=== PATIENT | female | born 1955 | race Caucasian/White ===

== ENCOUNTER → 2017-01-06 | Outpatient (CLI) | payer BC, OTHER | LOC: HYPER 12-28 11:40 | DX: L97.421 Non-pressure chronic ulcer of left heel and midfoot limited to breakdown of skin (principal); L03.116 Cellulitis of left lower limb; I73.9 Peripheral vascular disease, unspecified; M79.672 Pain in left foot; Z85.42 Personal history of malignant neoplasm of other parts of uterus ==

== ENCOUNTER → 2017-02-09 | Outpatient (CLI) | payer BC, OTHER | LOC: HYPER | DX: I70.244 Atherosclerosis of native arteries of left leg with ulceration of heel and midfoot (principal); L97.422 Non-pressure chronic ulcer of left heel and midfoot with fat layer exposed; I73.9 Peripheral vascular disease, unspecified; Z85.42 Personal history of malignant neoplasm of other parts of uterus; Z85.828 Personal history of other malignant neoplasm of skin; M79.672 Pain in left foot ==

== ENCOUNTER → 2017-03-01 | Outpatient (CLI) | payer BC, OTHER ==
[~2017-03-01] MED LIST: ATENOLOL 50MG T50 M1 PO; ATORVASTATIN CA20 MG PO; BRIMONIDINE TAR1 BO1 OP; EFFEXOR XR150 MG PO; EFFIENT10 MG PO; MULTIVITAMINS PO; TIMOLOL MA0.5 %/5 M2 OPHTHALMIC; VITAMIN C500 M1 PO; YOSPRALA DR 811 EACH PO
== END ==
LOC: HYPER 06:57
DX: I70.244 Atherosclerosis of native arteries of left leg with ulceration of heel and midfoot (principal); L97.422 Non-pressure chronic ulcer of left heel and midfoot with fat layer exposed; M79.672 Pain in left foot; Z85.42 Personal history of malignant neoplasm of other parts of uterus; Z90.710 Acquired absence of both cervix and uterus; Z79.4 Long term (current) use of insulin

== ENCOUNTER 2017-03-03 05:21 | Inpatient (IN) | payer BC, OTHER ==
[2017-02-24 11:57] LABS: URINE BILIRUBIN NEGATIVE (Negative); URINE BLOOD NEGATIVE (Negative); URINE COLOR YELLOW; URINE GLUCOSE-RANDOM* 3+ (Negative); URINE KETONES NEGATIVE (Negative); URINE LEUKOCYTES-REFLEX NEGATIVE (Negative); URINE PROTEIN (DIPSTICK) NEGATIVE (Negative); URINE UROBILINOGEN 0.2 E.U./dl (0.2-1.0)
[2017-02-24 12:02] LABS: HEMOGLOBIN 13.8 gm/dL (12.0-15.0); MCH 30.6 pg (26.0-34.0); MCHC 33.7 g/dL (28.0-37.0); MCV 90.7 fL (80.0-100.0); RBC 4.52 mil/uL (4.20-5.00); RDW 12.8 % (10.5-14.5); WBC 8.5 thou/uL (4.0-11.0)
[2017-02-24 12:15] LABS: APTT 24.2 Seconds (24.5-32.8)
[2017-02-24 12:21] LABS: CALCIUM 9.4 mg/dL (8.5-10.1); CREATININE 0.9 mg/dL (0.6-1.0); POTASSIUM 4.2 mmol/L (3.5-5.1)
[2017-03-03] VITALS (19 sets, daily range): BP systolic 101–191; BP diastolic 54–84
[~2017-03-03] VITALS: Ht 157.5 cm; Wt 86.7 kg
--- NOTE | ~2017-03-03 | EKG ---
[address] [place] [address] ELECTROCARDIOGRAM REPORT Name: KATEY DANIEL Room #: 239-P ADM IN M.R.#: [id number] Admission: 03/03/17 Attend Phys: Sivakumar Mejia MD Discharge: Date of : 51 Report #: [id number] THIS REPORT FOR: //name// [facility] Test Date: 2017-03-04 Test Time: 06:44:58 Pat Name: KATEY DANIEL Department: Room: 239 P Gender: F Transmission Repairer: nyla : 1955 Requested By: Don Piña Order Number: [id number] MD: Paco Negron Measurements Intervals [place] Rate: 62 P: 1 MD: 138 QRS: -19 QRSD: 91 T: -1 QT: 477 QTc: 485 Interpretive Statements Sinus rhythm Abnormal R-wave progression, early transition Nonspecific ST and T-wave abnormality Compared to ECG 02/24/2017 11:44:54 no significant change was found Electronically Signed On 03-04-2017 8:17:13 CDT by Paco Negron [email or web address] <ELECTRONICALLY SIGNED> By: Paco Negron MD, [facility] 03/04/17 0817 0644 [id number] Paco Negron MD, [facility] /EPI
--- NOTE | ~2017-03-03 | EKG ---
[address] [place] [address] ELECTROCARDIOGRAM REPORT Name: KATEY DANIEL Room #: 239-P ADM IN M.R.#: [id number] Admission: 03/03/17 Attend Phys: Sivakumar Mejia MD Discharge: Date of : 51 Report #: [id number] THIS REPORT FOR: //name// [facility] Test Date: 2017-03-03 Test Time: 16:54:10 Pat Name: KATEY DANIEL Department: Room: 239 Gender: F Store Grocery Merchandiser: Francis MOYER : 1955 Requested By: Don Piña Order Number: [id number] MD: Paco Negron Measurements Intervals [place] Rate: 66 P: 38 [place]: 135 QRS: 1 QRSD: 75 T: 50 QT: 419 QTc: 439 Interpretive Statements Sinus rhythm Abnormal R-wave progression, early transition Borderline T wave abnormalities Compared to ECG 02/24/2017 11:44:54 T-wave abnormality less prominent Electronically Signed On 03-04-2017 8:11:48 CDT by Paco Negron [email or web address] <ELECTRONICALLY SIGNED> By: Paco Negron MD, [facility] 03/04/17 0811 1654 1654 Paco Negron MD, [facility] /EPI
--- NOTE | ~2017-03-03 | EKG ---
[address] [place] [address] ELECTROCARDIOGRAM REPORT Name: JACSOPHIEKATEY Room #: PRE IN ..#: [id number] Admission: Attend Phys: Sivakumar Mejia MD Discharge: Date of : 51 Report #: [id number] THIS REPORT FOR: //name// [facility] Test Date: 2017-02-24 Test Time: 11:44:54 Pat Name: KATEY DANIEL Department: Room: Gender: F Lead Electrical Controls Engineer: luci romero : 1955 Requested By: Sivakumar Mejia Order Number: [id number] : Cristian Mclaughlin Measurements Intervals [place] Rate: 66 P: 31 [place]: 133 QRS: 60 QRSD: 87 T: -66 QT: 412 QTc: 432 Interpretive Statements Sinus rhythm Repol abnrm suggests ischemia, inferior leads No previous ECG available for comparison Electronically Signed On 02-28-2017 8:17:11 CDT by Cristian Mclaughlin [email or web address] <ELECTRONICALLY SIGNED> By: Cristian Mclaughlin MD 02/28/17 0817 1144 1144 MD MARILU Alarcon
--- NOTE | ~2017-03-03 | CRIT ---
[facility] [place] [address] CRITICAL CARE NOTE Name: KATEY DANIEL Room #: 208-P ADM IN M.R.#: [id number] Admission: 03/03/17 Attend Phys: Sivakumar Mejia MD Discharge: Date of : 51 Report #: [id number] THIS REPORT FOR: //name// CC: Sivakumar Nieto DATE OF SERVICE: 03/05/2017 WOUND CARE CONSULTATION NOTE REASON FOR CONSULTATION: Nonhealing ulcer of left lateral ankle in the setting of peripheral vascular disease with stents and diabetes. HISTORY: The patient is a 61-year-old woman, very well known to Dr. Minesh Knight who has been seeing her on an outpatient basis and healing and wound care. She is at [facility] 48 hours status post coronary artery bypass grafting with a right greater saphenous vein graft on . She is still in the ICU. She is doing well from her coronary artery bypass. Sometime in October, the patient was picking at a scab on her left foot near the ankle and a wound developed. She has been seeing Dr. Knight for this wound with silver alginate dressings. She has been found to have peripheral vascular disease of her lower extremities and part of that workup led to discovery of her coronary artery disease, which is now surgically treated. Dr. Flores has performed interventional procedures on the patient. Aortogram with runoff was done by Dr. Flores who placed right and left external iliac stents with a high-grade 95% mid left common femoral artery stenosis found. Both the right and the left leg have received stents. Dr. Knight has been trying to get the wound of the left ankle to heal. The patient states that she has to have another stent done on the vessels of her left leg by Dr. Flores. ALLERGIES: ASPIRIN and OXYCODONE. HOME MEDICATIONS: Include atenolol, venlafaxine, atorvastatin, Prasugrel, aspirin, Timolol, brimonidine, multivitamins and vitamin C as well as melatonin and amiodarone. PAST SURGICAL HISTORY: Coronary artery bypass grafting with right greater saphenous vein graft 48 hours ago. History of stenting of both lower extremities. REVIEW OF SYSTEMS: Noncontributory. PHYSICAL EXAMINATION: GENERAL: Shows a well-appearing 61-year-old female recovering from surgery. Mucous membranes are moist. CHEST: Shows a healing median sternotomy scar with complete skin closure and no [address] [address] CRITICAL CARE NOTE Name: KATEY DANIEL Room #: 208-P [facility] IN .R.#: [id number] Admission: 03/03/17 Attend Phys: Sivakumar Mejia MD Discharge: Date of : 51 Report #: [id number] redness or drainage. ABDOMEN: Obese and soft. EXTREMITIES: Examination of the lower extremities shows a small surgical incision in the right upper leg at the groin, which is well healing. Vein harvest incision near the knee and of the lower leg on the right are also well healing. Examination of the left lower extremity shows a chronic appearing small 1 x 0.4 x 0.2 cm deep ulcer near the left ankle laterally. There is some chronic thickening of the skin around the ulcer and pink granulation tissue at the base. Minimal erythema. Wound appears chronic. ASSESSMENT: 1. Coronary artery disease status post coronary artery bypass grafting. 2. Obesity. 3. Diabetes mellitus type 2. 4. Diabetic ulcer of the left foot in the setting of peripheral vascular disease of both right and left leg, status post stenting. The patient is to have further stenting on the left leg. PLAN: We will continue some dressings with silver alginate dressings to the small open diabetic foot ulcer changed daily with a foam border and Kerlix gauze wrap. The patient can follow up after discharge with Dr. Knight in the office. She is to have further stenting in the left leg by Dr. Flores. <ELECTRONICALLY SIGNED> By: Kushal Curtis MD 03/08/17 0820 1403 1858 Kushal Curtis MD /nt
--- NOTE | ~2017-03-03 | EKG ---
[address] [place] [place] [address] ELECTROCARDIOGRAM REPORT Name: KATEY DANIEL Room #: 208-P ADM IN M.R.#: [id number] Admission: 03/03/17 Attend Phys: Sivakumar Mejia MD Discharge: Date of : 51 Report #: [id number] THIS REPORT FOR: //name// [facility] Test Date: 2017-03-07 Test Time: 06:40:19 Pat Name: KATEY DANIEL Department: Room: 208 P Gender: F Dry Goods Clerk: nyla : 1955 Requested By: Don Piña Order Number: [id number] MD: Paco Negron Measurements Intervals [place] Rate: 62 P: 21 [place]: 130 QRS: 2 QRSD: 88 T: 195 QT: 450 QTc: 457 Interpretive Statements Sinus rhythm Abnormal T, consider ischemia, diffuse leads Compared to ECG 03/04/2017 06:44:58 ST and T wave abnormality is more pronounced. Electronically Signed On 03-07-2017 7:15:33 CDT by Paco Negron [email or web address] <ELECTRONICALLY SIGNED> By: Paco Negron MD, [facility] 03/07/17714 9 9 Paco Negron MD, [facility] /EPI
--- NOTE | ~2017-03-03 | O ---
[facility] [place] [address] OPERATIVE REPORT Name: KATEY DANIEL Room #: 239-P ADM IN M.R.#: [id number] Admission: 03/03/17 Attend Phys: Sivakumar Mejia MD Discharge: Date of : 51 Report #: [id number] THIS REPORT FOR: //name// CC: Sivakumar Gavin timothy DATE OF SERVICE: 03/03/2017 PREOPERATIVE DIAGNOSIS: Coronary artery disease. POSTOPERATIVE DIAGNOSIS: Coronary artery disease. OPERATION: Coronary artery bypass x 4 including left internal mammary artery to left anterior descending artery, saphenous vein to diagonal, saphenous vein to posterior descending branch of the right coronary and posterolateral branch of the circumflex and endoscopic harvest right greater saphenous vein. SURGEON: Sivakumar Mejia M.D. HEALTHCARE RISK CONTROL CONSULTANT: Wang. ANESTHESIA: General. INDICATIONS: The patient is a 61-year-old seen for Dr. Montoya. The patient has a known peripheral arterial occlusive disease and was found to have important coronary artery disease. Catheterization demonstrated a long narrow LAD that was flanking a diagonal. In addition, there was a codominant circumflex with a distal 50% lesion threatening the posterolateral branch. There was a first marginal that had proximal disease, but this was a small vessel. Right coronary had a 50% mid portion stenosis. Left ventricular function is satisfactory. FINDINGS AND TECHNIQUE: After general anesthesia was established, saphenous vein was harvested using an endoscopic approach and prepared for use as a conduit. Exposure was obtained through median sternotomy. Left internal mammary artery was harvested. Pericardial well was made. Cannulation sutures were placed. Heparin was given. Aorta was cannulated. Right atrium was cannulated. Cardioplegia needle was positioned in the aortic root. Retrograde cardioplegic catheter was placed in coronary sinus. Cardiopulmonary bypass was established. The aorta was cross clamped antegrade then retrograde cardioplegia were given. Ice was poured in the pericardial well. The heart was stopped. During electromechanical arrest, the distal anastomoses were performed and end-to-side anastomosis was made between vein and the posterolateral branch of the circumflex. Cold cardioplegia was given. Same segment of vein was sewn in [id number] fashion to posterior descending artery. Cold cardioplegia was [facility] [address] [place] [address] OPERATIVE REPORT Name: KATEY DANIEL Room #: 239-P [facility] IN .R.#: [id number] Admission: 03/03/17 Attend Phys: Sivakumar Mejia MD Discharge: Date of : 51 Report #: [id number] given. Separate segment of vein was sewn in end-to-side fashion to the diagonal artery. I looked at the marginal and dissected it off, but I thought it was too small for bypass. Cold cardioplegia was given. Left internal mammary artery was sewn in end-to-side fashion to the left anterior descending artery. When the anastomosis was completed, it was checked with the temperature technique. Cold cardioplegia was given. Two proximal anastomoses were performed. When these were complete, warm retrograde cardioplegia was given followed by warm continuous blood to the coronary sinus. When this infusion was complete, the crossclamp was removed. De-airing maneuvers were performed. The anastomoses were inspected and found to be satisfactory. As the patient warmed, nice cardiac activity resumed, chest tubes and pacing wires were placed, a marker was placed around the proximal anastomoses. When the patient was warmed, she was weaned from cardiopulmonary bypass. Venous cannula was removed. Protamine was given, the aortic cannula was removed. Flows were measured in the bypass grafts. Flow in the graft to the right side was 50 mL per minute. Flow in the graft to the left side was low, but we listen to the graft with the Doppler and felt there was good diastolic flow of the vessel. The diagonal itself was small. A good Doppler signal was audible in the internal mammary artery. Total cross clamp time was 90 minutes. Total pump time was 111 minutes. When hemostasis was satisfactory, chest was irrigated with antibiotic solution and closed in the usual fashion. The patient was taken to the Intensive Care Unit in good condition having tolerated the procedure well. By: 03 58 Sivakumar Mejia MD /saul
[2017-03-03 13:47] LABS: POC BE 0 mmol/L (-2.0 to +3.0); POC CA IONIZED 4.5 mg/dL (4.5-5.3); POC FiO2 100 %; POC GLUCOSE 204 mg/dL (70-99); POC HCO3 25.1 mmol/L (22.0-26.0); POC HEMOGLOBIN 7.5 g/dL (12.0-15.0); POC POTASSIUM 3.5 mmol/L (3.5-5.1); POC SODIUM 134 mmol/L (136-145); POC pCO2 43.2 mmHg (35.0-45.0); POC pH 7.373 (7.360-7.450)
[2017-03-03 13:47] LABS: POC BE -5 mmol/L (-2.0 to +3.0); POC CA IONIZED 5.2 mg/dL (4.5-5.3); POC FiO2 100 %; POC GLUCOSE 153 mg/dL (70-99); POC HEMOGLOBIN 8.8 g/dL (12.0-15.0); POC POTASSIUM 3.3 mmol/L (3.5-5.1); POC SODIUM 139 mmol/L (136-145); POC pCO2 35.3 mmHg (35.0-45.0); POC pH 7.362 (7.360-7.450)
[2017-03-03 13:47] LABS: POC BE -2 mmol/L (-2.0 to +3.0); POC FiO2 100 %; POC GLUCOSE 199 mg/dL (70-99); POC HCO3 21.9 mmol/L (22.0-26.0); POC HEMOGLOBIN 10.5 g/dL (12.0-15.0); POC POTASSIUM 3.9 mmol/L (3.5-5.1); POC SODIUM 135 mmol/L (136-145); POC pCO2 33.2 mmHg (35.0-45.0); POC pH 7.427 (7.360-7.450)
[2017-03-03 13:47] LABS: POC BE -4 mmol/L (-2.0 to +3.0); POC CA IONIZED 4.6 mg/dL (4.5-5.3); POC FiO2 100 %; POC GLUCOSE 200 mg/dL (70-99); POC HCO3 21.8 mmol/L (22.0-26.0); POC HEMOGLOBIN 8.5 g/dL (12.0-15.0); POC POTASSIUM 3.5 mmol/L (3.5-5.1); POC SODIUM 135 mmol/L (136-145); POC pCO2 42.4 mmHg (35.0-45.0); POC pH 7.319 (7.360-7.450)
[2017-03-03 13:47] LABS: POC BE -2 mmol/L (-2.0 to +3.0); POC CA IONIZED 4.6 mg/dL (4.5-5.3); POC FiO2 80 %; POC GLUCOSE 192 mg/dL (70-99); POC HCO3 23.9 mmol/L (22.0-26.0); POC HEMOGLOBIN 7.1 g/dL (12.0-15.0); POC POTASSIUM 3.9 mmol/L (3.5-5.1); POC SODIUM 134 mmol/L (136-145); POC pCO2 42.6 mmHg (35.0-45.0); POC pH 7.356 (7.360-7.450)
[2017-03-03 13:47] LABS: POC BE 1 mmol/L (-2.0 to +3.0); POC FiO2 100 %; POC GLUCOSE 134 mg/dL (70-99); POC HCO3 23.9 mmol/L (22.0-26.0); POC HEMOGLOBIN 11.2 g/dL (12.0-15.0); POC POTASSIUM 3.7 mmol/L (3.5-5.1); POC SODIUM 136 mmol/L (136-145); POC pCO2 29.9 mmHg (35.0-45.0)
[2017-03-03 13:47] LABS: POC BE -3 mmol/L (-2.0 to +3.0); POC CA IONIZED 5.5 mg/dL (4.5-5.3); POC FiO2 100 %; POC GLUCOSE 170 mg/dL (70-99); POC HCO3 21.6 mmol/L (22.0-26.0); POC HEMOGLOBIN 6.8 g/dL (12.0-15.0); POC POTASSIUM 3.8 mmol/L (3.5-5.1); POC SODIUM 136 mmol/L (136-145); POC pCO2 34.8 mmHg (35.0-45.0); POC pH 7.401 (7.360-7.450)
[2017-03-03 13:47] LABS: POC BE -1 mmol/L (-2.0 to +3.0); POC CA IONIZED 4.7 mg/dL (4.5-5.3); POC FiO2 90 %; POC GLUCOSE 180 mg/dL (70-99); POC HCO3 24.8 mmol/L (22.0-26.0); POC HEMOGLOBIN 7.1 g/dL (12.0-15.0); POC POTASSIUM 4.4 mmol/L (3.5-5.1); POC SODIUM 134 mmol/L (136-145); POC pCO2 45.4 mmHg (35.0-45.0); POC pH 7.346 (7.360-7.450)
[2017-03-03 14:22] LABS: HEMATOCRIT 26.7 % (37.0-47.0); HEMOGLOBIN 9.3 gm/dL (12.0-15.0); MCH 31.8 pg (26.0-34.0); MCHC 34.8 g/dL (28.0-37.0); MCV 91.3 fL (80.0-100.0); RBC 2.93 mil/uL (4.20-5.00); RDW 12.4 % (10.5-14.5); WBC 9.2 thou/uL (4.0-11.0)
[2017-03-03 14:29] LABS: CALCIUM 8.5 mg/dL (8.5-10.1); CREATININE 0.6 mg/dL (0.6-1.0); POTASSIUM 3.5 mmol/L (3.5-5.1)
[2017-03-03 14:35] LABS: ABG SAMPLE TYPE ARTERIAL; BE(vivo) -5.4 mmol/L (-2 to +3); HCO3 19.7 mmol/L (22.0-26.0); LACTATE 1.97 mmol/L (0.5-2.0); O2(CT) 14.1 mL/dL (15.0-23.0); O2Hb 97.8 % (92.0-98.0); PO2 218.5 mmHg (80.0-100.0); STICK SITE LINE; TIDAL VOLUME 550 ml; pH 7.345 (7.360-7.450); sO2 99.4 % (92.0-98.0); tCO2 20.9 mmol/L (24.0-30.0)
[2017-03-03 14:37] LABS: ABG SAMPLE TYPE VENOUS; BE(vivo) -5.6 mmol/L (-2 to +3); HCO3 20.6 mmol/L (22.0-26.0); LACTATE 1.88 mmol/L (0.5-2.0); O2(CT) 9.1 mL/dL (15.0-23.0); O2Hb VENOUS 63.9 (65.0-85.0); PCO2 VENOUS 43.2 mmHg (41.0-51.0); PO2 VENOUS 36.6 mmHg (35.0-45.0); sO2 VENOUS 63.8 % (65.0-85.0); tCO2 21.9 mmol/L (24.0-30.0)
[2017-03-03 14:38] LABS: STICK SITE LINE; TIDAL VOLUME 550 ml
[2017-03-03 18:21] LABS: HEMATOCRIT 31.7 % (37.0-47.0); HEMOGLOBIN 10.8 gm/dL (12.0-15.0); MCH 31.2 pg (26.0-34.0); MCHC 34.2 g/dL (28.0-37.0); MCV 91.1 fL (80.0-100.0); RBC 3.48 mil/uL (4.20-5.00); RDW 12.7 % (10.5-14.5); WBC 13.1 thou/uL (4.0-11.0)
[2017-03-03 18:30] LABS: CALCIUM 8.9 mg/dL (8.5-10.1); CREATININE 0.6 mg/dL (0.6-1.0); POTASSIUM 4.4 mmol/L (3.5-5.1)
[2017-03-03 19:12] LABS: ABG SAMPLE TYPE ARTERIAL; BE(vivo) -4.9 mmol/L (-2 to +3); HCO3 20.5 mmol/L (22.0-26.0); LACTATE 1.07 mmol/L (0.5-2.0); O2(CT) 15.2 mL/dL (15.0-23.0); O2Hb 93.3 % (92.0-98.0); PCO2 39.1 mmHg (35.0-45.0); pH 7.337 (7.360-7.450); sO2 94.7 % (92.0-98.0); tCO2 21.7 mmol/L (24.0-30.0)
[2017-03-03 19:13] LABS: ABG COMMENT CPAP TRIAL; Pressure Support 8 cm H20; STICK SITE LINE
[2017-03-03 20:00] LABS: ABG SAMPLE TYPE ARTERIAL; BE(vivo) -5.4 mmol/L (-2 to +3); Face Shield 40 %; HCO3 19.4 mmol/L (22.0-26.0); LACTATE 1.25 mmol/L (0.5-2.0); O2(CT) 15.6 mL/dL (15.0-23.0); O2Hb 95.6 % (92.0-98.0); PCO2 35.4 mmHg (35.0-45.0); PO2 90.2 mmHg (80.0-100.0); STICK SITE LINE; pH 7.356 (7.360-7.450); sO2 96.6 % (92.0-98.0); tCO2 20.5 mmol/L (24.0-30.0)
[2017-03-03 20:01] LABS: ABG COMMENT POST-EXTUBATION
[2017-03-04] VITALS (16 sets, daily range): BP systolic 106–147; BP diastolic 54–70
[2017-03-04 04:30] LABS: HEMATOCRIT 31.4 % (37.0-47.0); HEMOGLOBIN 10.5 gm/dL (12.0-15.0); MCH 30.9 pg (26.0-34.0); MCHC 33.6 g/dL (28.0-37.0); RBC 3.41 mil/uL (4.20-5.00); WBC 13.2 thou/uL (4.0-11.0)
[2017-03-04 04:52] LABS: CALCIUM 8.7 mg/dL (8.5-10.1); CREATININE 0.7 mg/dL (0.6-1.0); POTASSIUM 3.8 mmol/L (3.5-5.1)
[2017-03-05] VITALS (22 sets, daily range): BP systolic 117–144; BP diastolic 53–76
[2017-03-05 07:48] LABS: HEMATOCRIT 29.9 % (37.0-47.0); MCH 31.5 pg (26.0-34.0); MCHC 33.5 g/dL (28.0-37.0); MCV 93.9 fL (80.0-100.0); RBC 3.18 mil/uL (4.20-5.00); RDW 13.3 % (10.5-14.5); WBC 5.2 thou/uL (4.0-11.0)
[2017-03-05 07:58] LABS: CREATININE 0.6 mg/dL (0.6-1.0); POTASSIUM 4.4 mmol/L (3.5-5.1)
[2017-03-05 23:09] LABS: GLYCOHEMOGLOBIN (HGB A1C) 11.2 % (4.8-5.6)
[2017-03-06 01:13] VITALS: BP 1369/69; BP 139/69
[2017-03-06 02:56] LABS: HEMATOCRIT 27.2 % (37.0-47.0); HEMOGLOBIN 9.1 gm/dL (12.0-15.0); MCH 31.3 pg (26.0-34.0); MCHC 33.5 g/dL (28.0-37.0); MCV 93.3 fL (80.0-100.0); PLATELET COUNT 131 thou/uL (150-400); RBC 2.92 mil/uL (4.20-5.00); RDW 13.2 % (10.5-14.5); WBC 5.7 thou/uL (4.0-11.0)
[2017-03-06 02:59] LABS: MANUAL DIFF YES
[2017-03-06 03:02] LABS: CALCIUM 8.9 mg/dL (8.5-10.1); CREATININE 0.8 mg/dL (0.6-1.0); POTASSIUM 4.5 mmol/L (3.5-5.1)
[2017-03-06 03:30] LABS: ABSOLUTE NEUTROPHILS 3.8 thou/uL (1.4-8.2); TOTAL CELL COUNT 100
[2017-03-06 05:02] VITALS: BP 153/71
[2017-03-06 08:16] VITALS: BP 120/57
[2017-03-06 12:20] VITALS: BP 122/50
[2017-03-06 16:00] VITALS: BP 135/57
[2017-03-06 19:55] VITALS: BP 145/60
[2017-03-07 00:09] VITALS: BP 108/63; BP 108/663
[2017-03-07 02:56] LABS: HEMATOCRIT 27.8 % (37.0-47.0); HEMOGLOBIN 9.4 gm/dL (12.0-15.0); MCH 31.4 pg (26.0-34.0); MCHC 33.9 g/dL (28.0-37.0); MCV 92.8 fL (80.0-100.0); RDW 13.1 % (10.5-14.5); WBC 7.2 thou/uL (4.0-11.0)
[2017-03-07 03:06] LABS: CALCIUM 8.9 mg/dL (8.5-10.1); CREATININE 0.7 mg/dL (0.6-1.0)
[2017-03-07 04:00] VITALS: BP 128/94
[2017-03-07] MEDS ORDERED: LANTUSSOLASTAR SUBQ (08:54)
[2017-03-07] MEDS ORDERED: HUMALOG100 UNIT/1 SUBQ (08:54)
[2017-03-07 12:53] VITALS: BP 150/73
[2017-03-07 16:41] VITALS: BP 123/63
[2017-03-07 19:57] VITALS: BP 147/71
[2017-03-07 23:38] VITALS: BP 116/61
[2017-03-08 04:28] VITALS: BP 150/69
[2017-03-08] MEDS ORDERED: PACERONE 200 M200 M1 PO (07:52)
[2017-03-08] MEDS ORDERED: MONOPRIL20 MG PO (07:52)
[2017-03-08 08:10] VITALS: BP 147/73
[2017-03-08] MEDS ORDERED: HUMALOG100 UNIT/1 SUBQ (08:51)
[2017-03-08] MEDS ORDERED: LANTUSSOLASTAR SUBQ (08:51)
[2017-03-08 10:03] VITALS: BP 150/69
[2017-03-08 10:24] VITALS: BP 150/69
== END 2017-03-08 14:00 | disposition home health service (06) | DRG 236 ==
LOC: ICU 05:21 → TBA 05:21 → PRE 06:08 → ICU 14:44 → 2N 03-05 15:02
PROVIDERS: Internal Medicine Endocrinology, Diabetes & Metabolism; Physician Assistant; Surgery Vascular Surgery
PROC: 06BP0ZZ Excision of Right Saphenous Vein, Open Approach (ICD-10-PCS; principal; 2017-03-03)
PROC: 02HQ32Z Insertion of Monitoring Device into Right Pulmonary Artery, Percutaneous Approach (ICD-10-PCS; principal; 2017-03-03)
PROC: 02100Z9 Bypass Coronary Artery, One Artery from Left Internal Mammary, Open Approach (ICD-10-PCS; principal; 2017-03-03)
PROC: 021209W Bypass Coronary Artery, Three Arteries from Aorta with Autologous Venous Tissue, Open Approach (ICD-10-PCS; principal; 2017-03-03)
PROC: 5A1221Z Performance of Cardiac Output, Continuous (ICD-10-PCS; principal; 2017-03-03)
DX: I25.119 Atherosclerotic heart disease of native coronary artery with unspecified angina pectoris (principal); E87.1 Hypo-osmolality and hyponatremia; L97.429 Non-pressure chronic ulcer of left heel and midfoot with unspecified severity; D62 Acute posthemorrhagic anemia; D72.829 Elevated white blood cell count, unspecified; E78.5 Hyperlipidemia, unspecified; I10 Essential (primary) hypertension; F41.9 Anxiety disorder, unspecified; F32.9 Major depressive disorder, single episode, unspecified; E11.621 Type 2 diabetes mellitus with foot ulcer; E11.51 Type 2 diabetes mellitus with diabetic peripheral angiopathy without gangrene; I77.9 Disorder of arteries and arterioles, unspecified; E11.65 Type 2 diabetes mellitus with hyperglycemia; S91.302A Unspecified open wound, left foot, initial encounter; X58.XXXA Exposure to other specified factors, initial encounter; E78.00 Pure hypercholesterolemia, unspecified; R56.9 Unspecified convulsions; E66.9 Obesity, unspecified; Z68.35 Body mass index [BMI] 35.0-35.9, adult; Z95.828 Presence of other vascular implants and grafts; Y99.8 Other external cause status; Z88.6 Allergy status to analgesic agent; Z91.018 Allergy to other foods; Z79.899 Other long term (current) drug therapy; Z85.42 Personal history of malignant neoplasm of other parts of uterus
CPT/HCPCS: 10078; 10081; 47000; 47001; 47002; 47297; 48888; 50010; 50249; 50409; 50456; 50498; 50668; 51301; 52131; 52259; 53327; 53358; 54118; 56524; 56525; 56526; 56527; 56528; 56531; 56534; 56660; 56898; 57093; 62110; 62950; 64029; 65002; 65003; 65020; 65043; 65090; 65120

== ENCOUNTER 2017-05-11 05:46 | Inpatient (IN) | payer BC, OTHER ==
[2017-05-06 10:48] LABS: URINE BILIRUBIN NEGATIVE (Negative); URINE BLOOD NEGATIVE (Negative); URINE COLOR YELLOW; URINE GLUCOSE-RANDOM* TRACE (Negative); URINE KETONES NEGATIVE (Negative); URINE LEUKOCYTES-REFLEX NEGATIVE (Negative); URINE PROTEIN (DIPSTICK) NEGATIVE (Negative); URINE UROBILINOGEN 0.2 E.U./dl (0.2-1.0)
[2017-05-06 11:11] LABS: HEMATOCRIT 37.5 % (37.0-47.0); HEMOGLOBIN 12.5 gm/dL (12.0-15.0); MCH 29.3 pg (26.0-34.0); MCHC 33.2 g/dL (28.0-37.0); MCV 88.3 fL (80.0-100.0); RBC 4.25 mil/uL (4.20-5.00); RDW 14.1 % (10.5-14.5)
[2017-05-06 11:24] LABS: APTT 24.4 Seconds (24.5-32.8); PROTIME 10.2 Seconds (9.3-11.4)
[2017-05-06 11:25] LABS: ALBUMIN 3.5 g/dL (3.4-5.0); CALCIUM 9.6 mg/dL (8.5-10.1); CREATININE 0.9 mg/dL (0.6-1.0); POTASSIUM 4.3 mmol/L (3.5-5.1); TOTAL BILIRUBIN 0.2 mg/dL (<0.1-1.0); TOTAL PROTEIN 7.4 g/dL (6.4-8.2)
[~2017-05-11] VITALS: Ht 157.5 cm; Wt 84.8 kg
[2017-05-11] VITALS (25 sets, daily range): BP systolic 110–178; BP diastolic 44–113
--- NOTE | ~2017-05-11 | S ---
[facility] [place] [address] SURGICAL PATH RPT PROCEDURE Name: TRUDY POWELL Room #: 207-P DIS IN M.R.#: [id number] Admission: 05/11/17 Date of : 51 Discharge: 05/13/17 Report #: [id number] Path Case #: [id number] PATHOLOGY REPORT COLLECTION DATE: 05/11/2017 RECEIVED DATE: 05/11/2017 SUBMITTING PHYS: Dr. Sebastian Carlisle OTHER PHYS: Dr. Leslye Nieto SPECIMEN(S) RECEIVED: A.Left femoral artery plaque * * * * * * * * * * * * FINAL DIAGNOSIS: Left femoral artery plaque, removal: - Calcific sclerosis, consistent with stenosis. (IUV:mgr; 05/13/2017) PATHOLOGIST: Annel Self M.D. REPORT ELECTRONICALLY SIGNED BY: Annel Self M.D. DATE/TIME: 05/13/2017 14:31 * * * * * * * * * * * * GROSS PATHOLOGY: The specimen is received in formalin, labeled "Trudy Powell left femoral artery plaque". Received are multiple tubular-shaped segments of calcified, gritty, pale yellow plaque, ranging in length from 0.6 cm to 2.5 cm. Chopper Gun Operator sections are submitted in cassette A1, following decalcification. (SNA; 05/12/2017) CLINICAL HISTORY: Left femoral stenosis INITIAL CPT CODE(S): A; 65970, 26494 Professional services performed by [facility] at [facility] [address] [place] [address] Technical services performed by [facility] at [address] [place] [id number]. [facility] [address] [place] [address] SURGICAL PATH RPT PROCEDURE Name: TRUDY POWELL Room #: 207-P DIS IN M.R.#: [id number] Admission: 05/11/17 Date of : 51 Discharge: 05/13/17 Report #: [id number] Path Case #: [id number] [address] PHONE: [phone] DIRECTOR: Arslan Price M.D. * * * END OF REPORT * * *
[~2017-05-11 05:46] MED LIST changes: +ASPIR 8181 M1 PO; +HUMALOG100 UNIT/1 SUBQ; +LANTUSSOLASTAR SUBQ; +MONOPRIL20 MG PO; +NOVOLOG FL100 UNIT/M SC; +PACERONE 200 M200 M1 PO; +XANAX 0.25 MG0.25 MG PO
[2017-05-12] VITALS (8 sets, daily range): BP systolic 104–152; BP diastolic 47–102
[2017-05-12 05:01] LABS: HEMATOCRIT 32.1 % (37.0-47.0); HEMOGLOBIN 10.6 gm/dL (12.0-15.0)
[2017-05-12 05:12] LABS: CREATININE 0.8 mg/dL (0.6-1.0); POTASSIUM 3.7 mmol/L (3.5-5.1)
[2017-05-13 03:42] VITALS: BP 132/61
[2017-05-13 07:49] VITALS: BP 127/50
[2017-05-13] MEDS ORDERED: TRAMADOL 50 MG50 MG PO (08:52)
[2017-05-13 11:04] VITALS: BP 127/50
[2017-05-13 11:12] VITALS: BP 140/57
== END 2017-05-13 13:18 | disposition home or self-care (01) | DRG 254 ==
LOC: PRE 05:46 → TBA 06:07 → PRE 09:54 → ICU 16:17 → 2N 05-12 18:33
PROVIDERS: Nurse Practitioner; Thoracic Surgery (Cardiothoracic Vascular Surgery)
PROC: 04CL0ZZ Extirpation of Matter from Left Femoral Artery, Open Approach (ICD-10-PCS; principal; 2017-05-11)
PROC: 04UL0JZ Supplement Left Femoral Artery with Synthetic Substitute, Open Approach (ICD-10-PCS; principal; 2017-05-11)
DX: I73.9 Peripheral vascular disease, unspecified (principal); I87.8 Other specified disorders of veins; E11.51 Type 2 diabetes mellitus with diabetic peripheral angiopathy without gangrene; I10 Essential (primary) hypertension; H40.9 Unspecified glaucoma; E78.5 Hyperlipidemia, unspecified; F41.9 Anxiety disorder, unspecified; I25.10 Atherosclerotic heart disease of native coronary artery without angina pectoris; Z95.1 Presence of aortocoronary bypass graft; Z90.710 Acquired absence of both cervix and uterus; Z88.6 Allergy status to analgesic agent; Z91.018 Allergy to other foods; Z79.4 Long term (current) use of insulin
CPT/HCPCS: 10081; 10204; 50010; 50101; 50386; 50417; 50445; 50455; 51301; 52279; 54118; 55264; 56524; 56526; 56527; 56534; 56639; 57093; 62110; 62900; 70005

== ENCOUNTER → 2020-02-26 | Outpatient (CLI) | payer BC, OTHER ==
[~2020-02-26] MED LIST changes: +TRAMADOL 50 MG50 MG PO
== END ==
LOC: SJCVCIMAG 08:20
DX: I08.1 Rheumatic disorders of both mitral and tricuspid valves (principal); I70.203 Unspecified atherosclerosis of native arteries of extremities, bilateral legs; I11.9 Hypertensive heart disease without heart failure; I25.810 Atherosclerosis of coronary artery bypass graft(s) without angina pectoris; E78.00 Pure hypercholesterolemia, unspecified; E11.9 Type 2 diabetes mellitus without complications; I27.20 Pulmonary hypertension, unspecified; Z79.4 Long term (current) use of insulin; Z82.49 Family history of ischemic heart disease and other diseases of the circulatory system; Z95.1 Presence of aortocoronary bypass graft; Z79.899 Other long term (current) drug therapy

== ENCOUNTER → 2020-12-29 | Outpatient (CLI) | payer BC, OTHER | LOC: SJCVCIMAG 11-20 08:57 | PROVIDERS: ATTEND Nuclear Medicine Nuclear Cardiology | DX: I70.203 Unspecified atherosclerosis of native arteries of extremities, bilateral legs (principal); I65.23 Occlusion and stenosis of bilateral carotid arteries; M79.661 Pain in right lower leg; M79.662 Pain in left lower leg ==

== ENCOUNTER → 2021-08-04 | Outpatient (CLI) | payer OTHER | LOC: SJCVCIMAG 11:29 | PROVIDERS: ATTEND Internal Medicine Cardiovascular Disease | DX: I70.203 Unspecified atherosclerosis of native arteries of extremities, bilateral legs (principal); I70.223 Atherosclerosis of native arteries of extremities with rest pain, bilateral legs; R94.31 Abnormal electrocardiogram [ECG] [EKG]; I77.9 Disorder of arteries and arterioles, unspecified; I25.10 Atherosclerotic heart disease of native coronary artery without angina pectoris; I10 Essential (primary) hypertension; E11.9 Type 2 diabetes mellitus without complications; E78.00 Pure hypercholesterolemia, unspecified; F41.9 Anxiety disorder, unspecified; Z95.1 Presence of aortocoronary bypass graft; Z79.4 Long term (current) use of insulin; Z85.42 Personal history of malignant neoplasm of other parts of uterus; I27.20 Pulmonary hypertension, unspecified; Z79.899 Other long term (current) drug therapy; Z88.5 Allergy status to narcotic agent; Z88.8 Allergy status to other drugs, medicaments and biological substances; Z91.018 Allergy to other foods ==